=== PATIENT | male | born 1945 | race Caucasian/White ===

== ENCOUNTER 2021-02-20 11:26 | Emergency (ER) | payer OTHER, SELFPAY ==
[2021-02-20 11:39] VITALS: BP 121/68; PULSE 90; O2SAT 99
[2021-02-20 11:45] VITALS: BP 105/66; PULSE 79; RESP 16; TEMP 36.7; O2SAT 97; BMI 25.0
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
== END 2021-02-20 12:28 | disposition home or self-care (01) ==
PROVIDERS: Emergency Provider Emergency Medicine Emergency Medical Services
DX: Z04.1 Encounter for examination and observation following transport accident (principal)
CPT/HCPCS: 99283

== ENCOUNTER → 2021-04-09 11:18 | Outpatient (BNVA) | payer MEDICARE, SELFPAY | PROVIDERS: PCP Internal Medicine; Visit Provider Anesthesiology | DX: M16.11 Unilateral primary osteoarthritis, right hip (principal) | CPT/HCPCS: 99212 ==

== ENCOUNTER 2022-01-29 | Outpatient (REF) | payer MEDICARE, SELFPAY ==
--- NOTE | ~2022-01-29 | XR_ITS ---
EXAMINATION: XR PELVIS CLINICAL INFORMATION: Pain COMPARISON: 09/06/2018 TECHNIQUE: AP view of the pelvis. FINDINGS: Severe osteoarthritis of the bilateral hip joints, right greater than left. Degenerative changes of the sacroiliac joints and pelvic enthesopathy. XR/XR pelvis 1-2V IMPRESSION: Severe osteoarthritis of the bilateral hip joints, right greater than left.
== END 2022-01-29 00:01 | disposition home or self-care (01) ==
LOC: HO.HOSX
PROVIDERS: Visit Provider Orthopaedic Surgery
DX: M16.11 Unilateral primary osteoarthritis, right hip (principal)
CPT/HCPCS: 72170; 99202

== ENCOUNTER → 2022-06-08 10:49 | Outpatient (BNVA) | payer MEDICARE, SELFPAY | PROVIDERS: PCP Internal Medicine; Visit Provider Nurse Practitioner Family | DX: M16.11 Unilateral primary osteoarthritis, right hip (principal) | CPT/HCPCS: 99202 ==